=== PATIENT | female | born 1935 | race Caucasian/White ===

== ENCOUNTER 2017-12-21 13:35 | Inpatient (IN) | payer OTHER ==
[~2017-12-21] VITALS: Ht 160 cm; Wt 43.1 kg
[2017-12-21] MEDS ORDERED: SODIUM CHLORIDE 0.9% 1,000 ML IV ONE (13:47)
[2017-12-21] MEDS ORDERED: DEXTROSE 50% SYRINGE 50 ML IV ONE (14:39)
[2017-12-21 14:40] LABS: INR 1.29 (0.9-1.15); Partial Thromboplastin Time 37.3 sec (22.64-33.71); Prothrombin Time 14.1 sec (9.37-12.3)
[2017-12-21] MEDS ORDERED: DEXTROSE (50%) 50ML SYRG IV ONE (14:45)
[2017-12-21 14:55] LABS: Albumin 1.1 g/dL (3.4-5.0); BUN/Creatinine Ratio 28.5; Bilirubin, Total 0.7 mg/dL (0.2-1.0); Calcium 6.2 mg/dL (8.5-10.1); Potassium 3.2 mmol/L (3.5-5.1); Total Protein 4.9 g/dL (6.4-8.2)
[2017-12-21] MEDS ORDERED: ENOXAPARIN SOD 40 MG/0.4 ML SYRINGE SC ONE (15:15)
[2017-12-21] MEDS ORDERED: POTASSIUM CHL 20MEQ/100ML 100 ML IV ONE (15:15)
[2017-12-21] MEDS ORDERED: HYDROcodone-ACET 5/325MG TAB PO PRN (16:15)
[2017-12-21] MEDS ORDERED: ONDANSETRON HCL 4 MG/2 ML VIAL IV PRN (16:15)
[2017-12-21] MEDS ORDERED: MORPHINE SULFATE 4 MG/ML SYR/VIAL IV PRN ×2 (16:15)
[2017-12-21] MEDS ORDERED: VANCOMYCIN PER PHARMACY 0 MG IV SCH (16:15)
[2017-12-21] MEDS ORDERED: NITROGLYCERIN 0.4 MG SL TAB SL PRN (16:15)
[2017-12-21 16:31] LABS: Hemoglobin 11.6 g/dL (12.2-16.2)
[2017-12-21 16:33] LABS: Hematocrit 35.2 % (36.0-46.0); Mean Corpuscular Hemoglobin 29.1 pg (28.0-32.0); Mean Corpuscular Hgb Conc. 32.9 g/dL (32.0-36.0); Mean Corpuscular Volume 88.3 fL (80.0-100.0); Platelet Count (auto) 66 10^3/uL (140-450); Red Blood Cells 3.99 10^6/uL (4.0-5.20); Red Cell Distribution Width 16.9 % (11.8-14.3); White Blood Cell 23.6 10^3/uL (4.4-10.8)
[2017-12-21 16:42] LABS: Band Neutrophils % (manual) 0; Basophils % (manual) 0 (0.0-2.0); Blast Cells 0; Eosinophils % (manual) 0 (0-7); Metamyelocytes % 0; Myelocytes % 0; Promyelocytes % 0; Reactive Lymphocytes 0
[2017-12-21] MEDS ORDERED: NOREPINEPHRINE 8 MG/250ML KIT 250 ML IV ONE (16:50)
[2017-12-21 17:04] LABS: Lymphocytes % (manual) 2 (10.0-50.0); Monocytes % (manual) 1 (0-12)
[2017-12-21] MEDS: NOREPINEPHRINE 8 MG/250ML KIT 250 ML IV SCH (17:08)
[2017-12-21] MEDS ORDERED: VANCOMYCIN 1GM/250ML 250 ML IV ONE (17:15)
[2017-12-21] MEDS: D5W/ SOD CHL 0.9%/KCL 20MEQ 1,000 ML IV SCH (17:17)
[2017-12-21] MEDS: PIPERACILLIN-TAZOB 2.25GM 50 ML IV SCH ×2 (19:03→23:38)
[2017-12-21] MEDS ORDERED: OXYB15TA12 PO (20:40)
[2017-12-21] MEDS ORDERED: SIMV-8 PO (20:40)
[2017-12-21] MEDS ORDERED: LORA-654 PO (20:40)
[2017-12-21] MEDS ORDERED: ENOXAPARIN SOD 40 MG/0.4 ML SYRINGE SC SCH (21:09)
[2017-12-21] MEDS ORDERED: DEXTROSE (50%) 50ML SYRG IV PRN (21:15)
[2017-12-21] MEDS ORDERED: METO25TA62 PO (21:27)
[2017-12-21] MEDS ORDERED: HYDR25TA4 PO (21:27)
[2017-12-21 23:46] LABS: Urine Bacteria MANY /hpf (None Seen); Urine Blood 2+ /uL (Negative); Urine Hyaline Cast MANY /lpf (0 - 2); Urine Mucus FEW (None Seen); Urine Specific Gravity 1.025 (1.001-1.035); Urine WBC 27 /hpf (0 - 5); Urine WBC Clumps PRESENT /hpf (None Seen)
[2017-12-21] MEDS: ACCU-CHEK COMFORT CURVE STRIP VI SCH (23:54)
[2017-12-21] MEDS: InsuLIN REG 1unit/0.01ml Soln (100units/ml) SC SCH (23:54)
[2017-12-22] MEDS: InsuLIN REG 1unit/0.01ml Soln (100units/ml) SC SCH ×4 (04:00→16:33)
[2017-12-22] MEDS: ACCU-CHEK COMFORT CURVE STRIP VI SCH ×4 (04:05→16:33)
[2017-12-22] MEDS: D5W/ SOD CHL 0.9%/KCL 20MEQ 1,000 ML IV SCH (05:14)
[2017-12-22] MEDS: PIPERACILLIN-TAZOB 2.25GM 50 ML IV SCH (06:07)
[2017-12-22 07:15] LABS: Hemoglobin 10.5 g/dL (12.2-16.2)
[2017-12-22 07:28] LABS: Hematocrit 32.1 % (36.0-46.0); Mean Corpuscular Hgb Conc. 32.7 g/dL (32.0-36.0); Mean Corpuscular Volume 88.6 fL (80.0-100.0); Platelet Count (auto) 23 10^3/uL (140-450); Red Blood Cells 3.62 10^6/uL (4.0-5.20); Red Cell Distribution Width 17.7 % (11.8-14.3)
[2017-12-22 07:50] LABS: BUN/Creatinine Ratio 30.8; Bilirubin, Total 0.5 mg/dL (0.2-1.0); Potassium 3.2 mmol/L (3.5-5.1); Total Protein 4.5 g/dL (6.4-8.2)
[2017-12-22 07:52] LABS: White Blood Cell 39.7 10^3/uL (4.4-10.8)
[2017-12-22 07:53] LABS: Band Neutrophils % (manual) 0; Basophils % (manual) 0 (0.0-2.0); Blast Cells 0; Eosinophils % (manual) 0 (0-7); Metamyelocytes % 0; Myelocytes % 0; Promyelocytes % 0; Reactive Lymphocytes 0
[2017-12-22 07:54] LABS: Calcium 5.7 mg/dL (8.5-10.1)
[2017-12-22] MEDS ORDERED: VANCOMYCIN 750 MG in D5W 5% 250 ML IV ONE (09:00)
[2017-12-22 09:10] LABS: Lymphocytes % (manual) 8 (10.0-50.0); Monocytes % (manual) 2 (0-12)
[2017-12-22] MEDS ORDERED: PANTOPRAZOLE 40 MG/10 ML VIAL IV SCH (10:00)
[2017-12-22] MEDS ORDERED: SODIUM CHLORIDE 0.9% 500 ML IV ONE (10:20)
[2017-12-22] MEDS ORDERED: MEROPENEM 1gm/20ml IVPUSH 20 ML IV SCH (11:00)
[2017-12-22] MEDS ORDERED: POTASSIUM CHL 20 Meq TABLET PO ONE (11:30)
[2017-12-22] MEDS ORDERED: CLIN1CAP4 PO (12:31)
[2017-12-22] MEDS ORDERED: LEVO250T45 PO (12:31)
[2017-12-22] MEDS ORDERED: POTASSIUM CHLORIDE 20 MEQ, LIDOCAINE 1% (LOCAL ANESTH.) 2 ML in SODIUM CHL 0.9% 100 ML IV ONE (12:45)
[2017-12-22] MEDS ORDERED: POTASSIUM CHL 10% (20 MEQ/15ML) 15ml ORAL SOLN PO ONE ×2 (13:00)
[2017-12-22] MEDS: NOREPINEPHRINE 8 MG/250ML KIT 250 ML IV SCH (17:00)
[2017-12-22 18:30] VITALS: BP 78/50
[2017-12-22 19:01] LABS: INR 1.14 (0.9-1.15); Prothrombin Time 12.4 sec (9.37-12.3)
[2017-12-22 19:11] LABS: Alanine Aminotransferase 43 U/L (13-56); Albumin 0.8 g/dL (3.4-5.0); Alkaline Phosphatase 207 U/L (45-117); Anion Gap 10 (5-15); Aspartate Aminotransferase 66 U/L (15-37); BUN/Creatinine Ratio 34.8; Bilirubin, Direct < 0.1 mg/dL (0-0.2); Bilirubin, Total 0.4 mg/dL (0.2-1.0); Blood Urea Nitrogen 47 mg/dL (7-18); Carbon Dioxide 29 mmol/L (21-32); Chloride 100 mmol/L (98-107); GFR African American 48 mL/min; GFR Non-African American 40 mL/min; Glucose 118 mg/dL (74-106); Potassium 3.8 mmol/L (3.5-5.1); Sodium 139 mmol/L (136-145); Total Protein 3.9 g/dL (6.4-8.2)
[2017-12-22 19:43] LABS: Calcium 5.7 mg/dL (8.5-10.1)
[2017-12-22 20:23] LABS: Hematocrit 26.7 % (36.0-46.0); Hemoglobin 8.8 g/dL (12.2-16.2); Mean Corpuscular Hemoglobin 28.9 pg (28.0-32.0); Mean Corpuscular Hgb Conc. 32.8 g/dL (32.0-36.0); White Blood Cell 14.9 10^3/uL (4.4-10.8)
[2017-12-22 20:25] LABS: Mean Corpuscular Volume 88.2 fL (80.0-100.0); Red Blood Cells 3.02 10^6/uL (4.0-5.20); Red Cell Distribution Width 17.2 % (11.8-14.3)
[2017-12-22 20:59] LABS: Platelet Count (auto) 12 10^3/uL (140-450)
[2017-12-22 21:00] LABS: Basophils % (manual) 0 (0.0-2.0); Blast Cells 0; Metamyelocytes % 0; Myelocytes % 0; Promyelocytes % 0; Reactive Lymphocytes 0
[2017-12-22 21:17] LABS: Band Neutrophils % (manual) 5; Eosinophils % (manual) 2 (0-7); Lymphocytes % (manual) 4 (10.0-50.0); Monocytes % (manual) 3 (0-12)
== END 2017-12-22 18:45 | disposition hospice, home (50) | DRG 871 ==
LOC: EDBD 13:35 → ER 13:35 → TELE 13:36
PROVIDERS: ADMIT Internal Medicine; ATTEND Internal Medicine
DX: A41.9 Sepsis, unspecified organism (principal); E43 Unspecified severe protein-calorie malnutrition; I21.4 Non-ST elevation (NSTEMI) myocardial infarction; N17.0 Acute kidney failure with tubular necrosis; R65.21 Severe sepsis with septic shock; I50.33 Acute on chronic diastolic (congestive) heart failure; L89.159 Pressure ulcer of sacral region, unspecified stage; E86.1 Hypovolemia; N39.0 Urinary tract infection, site not specified; Z68.1 Body mass index [BMI] 19.9 or less, adult; W18.39XA Other fall on same level, initial encounter; I11.0 Hypertensive heart disease with heart failure; E16.2 Hypoglycemia, unspecified; R32 Unspecified urinary incontinence; K21.9 Gastro-esophageal reflux disease without esophagitis; R62.7 Adult failure to thrive; Z66 Do not resuscitate; E78.5 Hyperlipidemia, unspecified; F41.9 Anxiety disorder, unspecified; Y93.89 Activity, other specified; Y92.89 Other specified places as the place of occurrence of the external cause; Y99.8 Other external cause status
CPT/HCPCS: 36415; 71045; 74176; 80048; 80053; 80076; 80202; 81001; 82962; 83605; 83735; 83880; 84484; 85007; 85027; 85610; 85730; 87040; 87077; 87086; 87088; 87186; 87205; 93005; 93306; 93970; 96361; 96365; 96375; 96379; 99291; C9113; J1815; J2543; J3480; J7042; J7060